=== PATIENT | male | born 1985 | race Caucasian/White ===

== ENCOUNTER 2017-12-24 21:50 | Emergency (ER) | payer OTHER, BC ==
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
--- NOTE | 2017-12-25 00:03 | RADIOLOGY IMAGING REPORT ---
FACILITY: [facility] - [place] PATIENT NAME: Jh Alonso : 1985 MR: [id number] V: [id number] EXAM DATE: ORDERING PHYSICIAN: ASHLEY COLVIN TECHNOLOGIST: Location: [facility] [place] Patient: Jh Alonso : 1985 Visit/Account:[id number] Date of Sevice: 12/24/2017 CT of the cervical spine without contrast: Indication: Injury. Technique: Helical CT was performed through the cervical spine without contrast. Axial, coronal, and sagittal reconstructions are reviewed. One of the following dose optimization techniques was utilized in the performance of this exam: Autom ated exposure control; adjustment of the mA and/or kV according to the patient's size; or use of an i terative reconstruction technique. Specific details can be referenced in the facility's radiology CT exam operational policy. Comparison: None. Findings: There is no evidence of fracture, compression, subluxation, or other acute deformity. There is mild degenerative disc disease at C5-C6. There is uniform mineralization. The skeletal structures are otherwise unremarkable. No paraspinal soft tissue abnormalities are identified. IMPRESSION: No evidence of fracture or acute deformity. Report Dictated By: Perico Henson MD at 12/24/2017 11:53 PM Report E-Signed By: Perico Henson MD at 12/24/2017 11:59 PM WSN:[id number]
--- NOTE | 2017-12-25 00:08 | RADIOLOGY IMAGING REPORT ---
FACILITY: [facility] PATIENT NAME: Jh Aolnso : 1985 MR: [id number] V: [id number] EXAM DATE: ORDERING PHYSICIAN: ASHLEY COLVIN TECHNOLOGIST: Location: [facility] - [place] Patient: Jh Alonso : 1985 Visit/Account:[id number] Date of Sevice: 12/24/2017 CHEST: Indication: Injury. Technique: Frontal and lateral views were obtained. Comparison: None. Skeletal and soft tissue structures: Intact and unremarkable. Heart and mediastinum: Within normal limits. Lung phillips: Well-expanded and clear. Pleural spaces: Unremarkable. Impression: No acute process. Report Dictated By: Perico Henson MD at 12/25/2017 12:03 AM Report E-Signed By: Perico Henson MD at 12/25/2017 12:04 AM WSN:[id number]
--- NOTE | 2017-12-25 00:12 | RADIOLOGY IMAGING REPORT ---
FACILITY: [facility] - [place] PATIENT NAME: Jh Alonso : 1985 MR: [id number] V: [id number] EXAM DATE: ORDERING PHYSICIAN: ASHLEY COLVIN TECHNOLOGIST: Location: [facility] Patient: Jh Alonso : 1985 Visit/Account:[id number] Date of Sevice: 12/24/2017 CT of the thoracic spine without contrast: Indication: Injury. Technique: Helical CT was performed through the thoracic spine without contrast. Axial, coronal, and sagittal reconstructions are reviewed. One of the following dose optimization techniques was utilized in the performance of this exam: Autom ated exposure control; adjustment of the mA and/or kV according to the patient's size; or use of an i terative reconstruction technique. Specific details can be referenced in the facility's radiology CT exam operational policy. Comparison: None. Findings: There is no evidence of fracture, compression, subluxation, or other acute deformity. There is uniform mineralization. The skeletal structures are otherwise unremarkable. No paraspinal soft ti ssue abnormalities are identified. IMPRESSION: No evidence of fracture or acute deformity. Report Dictated By: Perico Henson MD at 12/25/2017 12:04 AM Report E-Signed By: Perico Henson MD at 12/25/2017 12:08 AM WSN:[id number]
[2017-12-25 00:30] VITALS: BP 112/78
== END 2017-12-25 00:40 | disposition home or self-care (01) ==
LOC: ER 23:59
DX: S16.1XXA Strain of muscle, fascia and tendon at neck level, initial encounter (principal); V87.7XXA Person injured in collision between other specified motor vehicles (traffic), initial encounter
CPT/HCPCS: 71046; 72125; 72128; 99284; L0172